=== PATIENT | female | born 1970 | race Caucasian/White ===

== ENCOUNTER 2019-02-03 02:39 | Inpatient (IN) | payer BC ==
[~2019-02-03] VITALS: Ht 154.9 cm; Wt 62.1 kg
[2019-02-03 02:46] VITALS: Ht 154.9 cm; Wt 62.1 kg
[2019-02-03 05:25] LABS: BASOPHIL % 0.7 % (0-2); CALCIUM 8.7 mg/dL (8.5-10.1); CARBON DIOXIDE 25.9 mmol/L (21-32); CHLORIDE SERUM 106 mmol/L (98-107); CREATININE SERUM 0.5 mg/dL (0.6-1.0); GFR1 > 60 mL/min; GLUCOSE SERUM 91 mg/dL (74-106); PLATELET COUNT 302 x10^3mcL (130-400); POTASSIUM SERUM 3.5 mmol/L (3.5-5.1); SODIUM SERUM 142 mmol/L (136-145)
[2019-02-03 05:28] LABS: RED CELL DISTRIBUTION WIDTH 14.8 % (11.5-14.5)
[2019-02-03 05:38] LABS: UA SPECIFIC GRAVITY >=1.030 (1.005-1.035); microscopic required? YES; urine erythrocyte NEGATIVE (NEGATIVE)
[2019-02-03 05:40] LABS: ALBUMIN 3.9 g/dL (3.4-5.0); ALKALINE PHOSPHATASE 85 U/L (46-116); ALT/SGPT 56 U/L (14-59); AST/SGOT 18 U/L (15-37); BILIRUBIN TOTAL 1.9 mg/dL (0.20-1.00); FREE T4 1.32 ng/dL (0.76-1.46); TOTAL PROTEIN, SERUM 7.7 g/dL (6.4-8.2)
[2019-02-03] MEDS ORDERED: NOR10 PO (07:53)
[2019-02-03] MEDS ORDERED: METOPROLOL (07:54)
[2019-02-03] MEDS ORDERED: MICARDIS HCT PO (08:07)
[2019-02-03 10:18] VITALS: BP 181/101
[2019-02-03] MEDS ORDERED: ASPIR 8181 MG PO (10:26)
[2019-02-03 11:29] LABS: PHOSPHOROUS 2.6 mg/dL (2.5-4.9)
[2019-02-03 11:45] VITALS: BP 171/93
[2019-02-03 13:53] LABS: AMPHETAMINE QUAL UR NONE DETECTED (See below)
[2019-02-03 13:54] VITALS: BP 165/77
[2019-02-03 16:53] LABS: C REACTIVE PROTEIN 0.5 mg/dL (<=0.9); URIC ACID 3.8 mg/dL (2.6-6.0)
[2019-02-03 17:06] VITALS: BP 147/94
[2019-02-03 17:07] LABS: CHOLESTEROL/HDL RATIO 2.5
[2019-02-03 20:31] VITALS: BP 129/74
[2019-02-04 05:25] VITALS: BP 134/86
[2019-02-04 07:46] LABS: BASOPHIL % 0.6 % (0-2); PLATELET COUNT 307 x10^3mcL (130-400); RED CELL DISTRIBUTION WIDTH 14.2 % (11.5-14.5)
[2019-02-04 08:05] LABS: CALCIUM 9.1 mg/dL (8.5-10.1); CARBON DIOXIDE 25.8 mmol/L (21-32); CHLORIDE SERUM 104 mmol/L (98-107); CREATININE SERUM 0.6 mg/dL (0.6-1.0); GFR1 > 60 mL/min; GLUCOSE SERUM 88 mg/dL (74-106); PHOSPHOROUS 3.8 mg/dL (2.5-4.9); POTASSIUM SERUM 3.6 mmol/L (3.5-5.1); SODIUM SERUM 141 mmol/L (136-145)
[2019-02-04 08:11] VITALS: BP 148/60
[2019-02-04 12:12] VITALS: BP 138/87
[2019-02-04] MEDS ORDERED: MED4 PO (13:59)
[2019-02-04] MEDS ORDERED: BENADRYL ALLERG25 M1 PO ×2 (14:00→14:11)
[2019-02-04] MEDS ORDERED: ZESTRIL20 MG PO (14:01)
[2019-02-04] MEDS ORDERED: LASIX20 MG PO (14:11)
== END 2019-02-04 14:30 | disposition home or self-care (01) | DRG 307 ==
LOC: ED 02:39 → DU 09:10
PROVIDERS: Emergency Medicine; ADMIT General Practice
DX: I34.0 Nonrheumatic mitral (valve) insufficiency (principal); J98.11 Atelectasis; I25.10 Atherosclerotic heart disease of native coronary artery without angina pectoris; I10 Essential (primary) hypertension; I27.20 Pulmonary hypertension, unspecified; R21 Rash and other nonspecific skin eruption; Z86.11 Personal history of tuberculosis; Z79.82 Long term (current) use of aspirin; Z68.27 Body mass index [BMI] 27.0-27.9, adult
CPT/HCPCS: 83880; 84439; 85378; 94150; J1644; J1885; J1940; J7620; Q0092

== ENCOUNTER 2019-07-17 18:16 | Emergency (ER) | payer BC ==
[~2019-07-17] VITALS: Ht 154.9 cm; Wt 68.5 kg
[~2019-07-17 18:16] MED LIST: ASPIR 8181 MG PO; BENADRYL ALLERG25 M1 PO; LASIX20 MG PO; MED4 PO; METOPROLOL; MICARDIS HCT PO; NOR10 PO; ZESTRIL20 MG PO
[2019-07-17 18:40] VITALS: Ht 154.9 cm; Wt 68.5 kg
[2019-07-17 22:37] VITALS: BP 153/92
== END 2019-07-17 22:37 | disposition home or self-care (01) ==
LOC: ED 18:16
DX: S13.4XXA Sprain of ligaments of cervical spine, initial encounter (principal); R51 Headache; I10 Essential (primary) hypertension; V43.52XA Car driver injured in collision with other type car in traffic accident, initial encounter; Y93.I9 Activity, other involving external motion; Y92.488 Other paved roadways as the place of occurrence of the external cause; Y99.8 Other external cause status

== ENCOUNTER 2019-09-10 08:30 | Emergency (ER) | payer BC ==
[~2019-09-10] VITALS: Ht 154.9 cm; Wt 67.1 kg
[2019-09-10 08:36] VITALS: Ht 154.9 cm; Wt 67.1 kg
[2019-09-10 10:58] LABS: BASOPHIL % 0.7 % (0-2); PLATELET COUNT 183 x10^3mcL (130-400); RED CELL DISTRIBUTION WIDTH 13.1 % (11.5-14.5)
[2019-09-10 11:00] LABS: CALCIUM 7.6 mg/dL (8.5-10.1); CARBON DIOXIDE 25.8 mmol/L (21-32); CHLORIDE SERUM 105 mmol/L (98-107); CREATININE SERUM 0.7 mg/dL (0.6-1.0); GFR1 > 60 mL/min; GLUCOSE SERUM 94 mg/dL (74-106); POTASSIUM SERUM 3.7 mmol/L (3.5-5.1); SODIUM SERUM 138 mmol/L (136-145)
[2019-09-10 11:52] VITALS: BP 143/91
== END 2019-09-10 12:31 | disposition home or self-care (01) ==
LOC: ED 08:30
PROVIDERS: Emergency Medicine
DX: J10.1 Influenza due to other identified influenza virus with other respiratory manifestations (principal); J18.9 Pneumonia, unspecified organism; I10 Essential (primary) hypertension
CPT/HCPCS: 36415; 87804; J1100; J7613

== ENCOUNTER 2019-09-15 10:05 | Emergency (ER) | payer BC ==
[~2019-09-15] VITALS: Ht 160 cm; Wt 68.0 kg
[2019-09-15 10:28] VITALS: Ht 160 cm; Wt 68.0 kg
[2019-09-15 12:08] VITALS: BP 134/92
== END 2019-09-15 13:08 | disposition home or self-care (01) ==
LOC: ED 10:05
DX: J18.9 Pneumonia, unspecified organism (principal); J98.01 Acute bronchospasm; I10 Essential (primary) hypertension
CPT/HCPCS: J7512; J7613

== ENCOUNTER 2019-10-12 18:57 | Inpatient (IN) | payer BC ==
[~2019-10-12] VITALS: Ht 154.9 cm; Wt 71.2 kg
[2019-10-12 19:24] VITALS: Ht 154.9 cm; Wt 71.2 kg
[2019-10-12 20:58] LABS: BASOPHIL % 0.3 % (0-2); PLATELET COUNT 315 x10^3mcL (130-400); RED CELL DISTRIBUTION WIDTH 14.5 % (11.5-14.5)
[2019-10-12 23:22] LABS: CALCIUM 8.6 mg/dL (8.5-10.1); CARBON DIOXIDE 28.3 mmol/L (21-32); CHLORIDE SERUM 104 mmol/L (98-107); CREATININE SERUM 0.7 mg/dL (0.6-1.0); GFR1 > 60 mL/min; GLUCOSE SERUM 89 mg/dL (74-106); POTASSIUM SERUM 3.4 mmol/L (3.5-5.1); SODIUM SERUM 140 mmol/L (136-145)
[2019-10-12 23:27] LABS: ALBUMIN 3.7 g/dL (3.4-5.0); ALKALINE PHOSPHATASE 126 U/L (46-116); ALT/SGPT 45 U/L (14-59); AST/SGOT 21 U/L (15-37); BILIRUBIN TOTAL 0.77 mg/dL (0.20-1.00); TOTAL PROTEIN, SERUM 7.5 g/dL (6.4-8.2)
[2019-10-13 04:09] LABS: CHOLESTEROL/HDL RATIO 2.8
[2019-10-13 04:37] LABS: FREE T4 1.18 ng/dL (0.76-1.46); FREE THYROXINE INDEX 2.7 ug/dL (1.4-4.5); T4(THYROXINE) 7.8 ug/dL (4.7-13.3)
[2019-10-13 07:08] LABS: microscopic required? NO
[2019-10-13 07:54] LABS: urine erythrocyte NEGATIVE (NEGATIVE)
[2019-10-13 08:39] LABS: AMPHETAMINE QUAL UR NONE DETECTED (See below)
[2019-10-13 08:59] LABS: BASOPHIL % 0.4 % (0-2); PLATELET COUNT 268 x10^3mcL (130-400); RED CELL DISTRIBUTION WIDTH 14.4 % (11.5-14.5)
[2019-10-13 09:22] LABS: CALCIUM 8.7 mg/dL (8.5-10.1); CHLORIDE SERUM 106 mmol/L (98-107); CREATININE SERUM 0.6 mg/dL (0.6-1.0); GFR1 > 60 mL/min; GLUCOSE SERUM 93 mg/dL (74-106); MAGNESIUM 1.9 mg/dL (1.8-2.4); PHOSPHOROUS 3.8 mg/dL (2.5-4.9); POTASSIUM SERUM 3.7 mmol/L (3.5-5.1); SODIUM SERUM 141 mmol/L (136-145)
[2019-10-13 10:12] VITALS: BP 151/84
[2019-10-13 13:39] VITALS: BP 138/85
[2019-10-13 17:01] VITALS: BP 132/86
[2019-10-13 20:40] VITALS: BP 120/76
[2019-10-14 06:11] VITALS: BP 121/72
[2019-10-14 06:32] LABS: BASOPHIL % 0.5 % (0-2); PLATELET COUNT 281 x10^3mcL (130-400)
[2019-10-14 06:37] LABS: CALCIUM 8.5 mg/dL (8.5-10.1); CHLORIDE SERUM 106 mmol/L (98-107); CREATININE SERUM 0.7 mg/dL (0.6-1.0); GFR1 > 60 mL/min; GLUCOSE SERUM 103 mg/dL (74-106); POTASSIUM SERUM 4.2 mmol/L (3.5-5.1); SODIUM SERUM 142 mmol/L (136-145)
[2019-10-14 07:07] LABS: RED CELL DISTRIBUTION WIDTH 14.8 % (11.5-14.5)
[2019-10-14 07:59] VITALS: BP 98/68
[2019-10-14 08:01] VITALS: BP 112/46; BP 98/68
[2019-10-14 09:36] VITALS: BP 120/82
[2019-10-14 13:16] VITALS: BP 129/84
[2019-10-14] MEDS ORDERED: LASIX20 MG PO (14:45)
[2019-10-14] MEDS ORDERED: LOP50 PO (14:45)
[2019-10-14] MEDS ORDERED: COZ50 PO (14:46)
[2019-10-14] MEDS ORDERED: ECO81 PO (14:46)
[2019-10-14] MEDS ORDERED: CLEOCIN HCL300 MG PO (14:49)
[2019-10-14 15:03] VITALS: BP 129/84
== END 2019-10-14 15:40 | disposition home or self-care (01) | DRG 602 ==
LOC: ED 18:57 → DU 10-13 03:26 → MU 10-13 03:26 → DU 10-13 07:20 → MU 10-13 16:27
PROVIDERS: Emergency Medicine; ADMIT Family Medicine
DX: L03.116 Cellulitis of left lower limb (principal); I50.33 Acute on chronic diastolic (congestive) heart failure; L03.115 Cellulitis of right lower limb; E87.6 Hypokalemia; I11.0 Hypertensive heart disease with heart failure; I25.10 Atherosclerotic heart disease of native coronary artery without angina pectoris; I34.0 Nonrheumatic mitral (valve) insufficiency; E78.5 Hyperlipidemia, unspecified; Z79.82 Long term (current) use of aspirin; Z68.25 Body mass index [BMI] 25.0-25.9, adult; Z86.11 Personal history of tuberculosis
CPT/HCPCS: 83880; 84439; 85378; G0378; J0696; J1940; J3490; J7030; Q0092

== ENCOUNTER 2020-07-15 23:41 | Inpatient (IN) | payer BC ==
[~2020-07-15] VITALS: Ht 154.9 cm; Wt 60.6 kg
[~2020-07-15 23:41] MED LIST changes: +CLEOCIN HCL300 MG PO; +COZ50 PO; +ECO81 PO; +LOP50 PO
[2020-07-15 23:51] VITALS: Ht 154.9 cm; Wt 60.6 kg
[2020-07-16] VITALS (7 sets, daily range): BP systolic 122–186; BP diastolic 66–104
[2020-07-16 01:10] LABS: BASOPHIL % 0.8 % (0-2); PLATELET COUNT 246 x10^3mcL (130-400); RED CELL DISTRIBUTION WIDTH 12.8 % (11.5-14.5)
[2020-07-16 01:22] LABS: CALCIUM 8.7 mg/dL (8.5-10.1); CARBON DIOXIDE 30.9 mmol/L (21-32); CHLORIDE SERUM 101 mmol/L (98-107); CREATININE SERUM 0.8 mg/dL (0.6-1.0); GFR1 > 60 mL/min; POTASSIUM SERUM 3.7 mmol/L (3.5-5.1); SODIUM SERUM 137 mmol/L (136-145)
[2020-07-16 01:34] LABS: ALBUMIN 3.9 g/dL (3.4-5.0); ALKALINE PHOSPHATASE 109 U/L (46-116); ALT/SGPT 23 U/L (14-59); AST/SGOT 22 U/L (15-37); BILIRUBIN TOTAL 0.62 mg/dL (0.20-1.00); GLUCOSE SERUM 96 mg/dL (74-106); TOTAL PROTEIN, SERUM 7.9 g/dL (6.4-8.2)
[2020-07-16] MEDS ORDERED: NITROGLYCERIN0.3 MG SL (01:58)
[2020-07-16] MEDS ORDERED: NORVASC10 MG PO (01:59)
[2020-07-16 02:32] LABS: MAGNESIUM 1.8 mg/dL (1.8-2.4); PHOSPHOROUS 3.1 mg/dL (2.5-4.9)
[2020-07-16 02:43] LABS: T3 TOTAL 1.26 ng/mL
[2020-07-16 02:56] LABS: FREE T4 0.89 ng/dL (0.76-1.46); FREE THYROXINE INDEX 2.1 ug/dL (1.4-4.5); T4(THYROXINE) 6.7 ug/dL (4.7-13.3)
[2020-07-16 04:18] LABS: CHOLESTEROL/HDL RATIO 3.7
[2020-07-16] MEDS ORDERED: COREG6.25 M1 PO (14:35)
[2020-07-16] MEDS ORDERED: ZESTRIL20 MG PO (14:36)
[2020-07-16] MEDS ORDERED: ISO10 PO (14:38)
[2020-07-16] MEDS ORDERED: RANEXA500 M2 PO (14:40)
[2020-07-16] MEDS ORDERED: LIPITOR40 MG PO (14:47)
== END 2020-07-16 17:25 | disposition home or self-care (01) | DRG 305 ==
LOC: ED 23:41 → DU 07-16 01:49
PROVIDERS: Emergency Medicine; ADMIT Internal Medicine; ATTEND Internal Medicine
DX: I16.0 Hypertensive urgency (principal); I25.10 Atherosclerotic heart disease of native coronary artery without angina pectoris; E78.5 Hyperlipidemia, unspecified; Z20.828 Contact with and (suspected) exposure to other viral communicable diseases; I34.0 Nonrheumatic mitral (valve) insufficiency; I25.2 Old myocardial infarction; Z79.899 Other long term (current) drug therapy; Z79.82 Long term (current) use of aspirin; Z79.01 Long term (current) use of anticoagulants; Z82.49 Family history of ischemic heart disease and other diseases of the circulatory system
CPT/HCPCS: 83880; 84439; G0378; J3490; Q0092

== ENCOUNTER 2020-08-11 19:28 | Inpatient (IN) | payer BC ==
[~2020-08-11] VITALS: Ht 154.9 cm; Wt 64.1 kg
[~2020-08-11 19:28] MED LIST changes: +COREG6.25 M1 PO; +ISO10 PO; +LIPITOR40 MG PO; +NITROGLYCERIN0.3 MG SL; +NORVASC10 MG PO; +RANEXA500 M2 PO
[2020-08-11 21:11] LABS: microscopic required? NO
[2020-08-11 21:12] LABS: BASOPHIL % 1.1 % (0-2); PLATELET COUNT 271 x10^3mcL (130-400); RED CELL DISTRIBUTION WIDTH 14.1 % (11.5-14.5)
[2020-08-11 21:18] LABS: CALCIUM 8.9 mg/dL (8.5-10.1); CHLORIDE SERUM 102 mmol/L (98-107); CREATININE SERUM 0.8 mg/dL (0.6-1.0); GFR1 > 60 mL/min; GLUCOSE SERUM 114 mg/dL (74-106); POTASSIUM SERUM 3.5 mmol/L (3.5-5.1); SODIUM SERUM 136 mmol/L (136-145)
[2020-08-11 21:23] LABS: ALBUMIN 3.5 g/dL (3.4-5.0); ALKALINE PHOSPHATASE 128 U/L (46-116); ALT/SGPT 41 U/L (14-59); AST/SGOT 12 U/L (15-37); BILIRUBIN TOTAL 0.5 mg/dL (0.20-1.00); TOTAL PROTEIN, SERUM 6.7 g/dL (6.4-8.2)
[2020-08-11 21:40] LABS: urine erythrocyte NEGATIVE (NEGATIVE)
[2020-08-11 21:45] LABS: T3 TOTAL 1.21 ng/mL
[2020-08-11 21:47] LABS: FREE T4 1.13 ng/dL (0.76-1.46); FREE THYROXINE INDEX 2.8 ug/dL (1.4-4.5); T4(THYROXINE) 7.3 ug/dL (4.7-13.3)
[2020-08-11 21:59] LABS: AMPHETAMINE QUAL UR NONE DETECTED (See below)
[2020-08-12] VITALS (9 sets, daily range): BP systolic 122–190; BP diastolic 75–115; Ht 154.9 cm; Wt 64.1 kg
[2020-08-12 02:13] LABS: CHOLESTEROL/HDL RATIO 3.1; MAGNESIUM 1.9 mg/dL (1.8-2.4); PHOSPHOROUS 3.7 mg/dL (2.5-4.9)
[2020-08-12 09:26] LABS: BASOPHIL % 1.3 % (0-2); PLATELET COUNT 279 x10^3mcL (130-400); RED CELL DISTRIBUTION WIDTH 13.1 % (11.5-14.5)
[2020-08-12 10:46] LABS: CALCIUM 8.6 mg/dL (8.5-10.1); CARBON DIOXIDE 26.3 mmol/L (21-32); CHLORIDE SERUM 102 mmol/L (98-107); CREATININE SERUM 0.7 mg/dL (0.6-1.0); GFR1 > 60 mL/min; GLUCOSE SERUM 103 mg/dL (74-106); POTASSIUM SERUM 3.6 mmol/L (3.5-5.1); SODIUM SERUM 136 mmol/L (136-145)
[2020-08-13] VITALS (7 sets, daily range): BP systolic 82–123; BP diastolic 42–78
[2020-08-13 08:27] LABS: CALCIUM 8.4 mg/dL (8.5-10.1); CHLORIDE SERUM 103 mmol/L (98-107); CREATININE SERUM 0.8 mg/dL (0.6-1.0); GFR1 > 60 mL/min; GLUCOSE SERUM 121 mg/dL (74-106); POTASSIUM SERUM 4.3 mmol/L (3.5-5.1); SODIUM SERUM 135 mmol/L (136-145)
[2020-08-13 08:39] LABS: BASOPHIL % 0.5 % (0-2); PLATELET COUNT 301 x10^3mcL (130-400); RED CELL DISTRIBUTION WIDTH 14.1 % (11.5-14.5)
[2020-08-13] MEDS ORDERED: ADA90 PO (12:59)
[2020-08-13] MEDS ORDERED: ISO10 PO (13:13)
== END 2020-08-13 15:53 | disposition home or self-care (01) | DRG 313 ==
LOC: ED 19:28 → DU 22:30
PROVIDERS: Specialist; ADMIT Internal Medicine; ATTEND Internal Medicine
DX: R07.89 Other chest pain (principal); I16.0 Hypertensive urgency; F41.9 Anxiety disorder, unspecified; I25.10 Atherosclerotic heart disease of native coronary artery without angina pectoris; I34.0 Nonrheumatic mitral (valve) insufficiency; E78.5 Hyperlipidemia, unspecified; I25.2 Old myocardial infarction; Z82.49 Family history of ischemic heart disease and other diseases of the circulatory system; Z86.11 Personal history of tuberculosis
CPT/HCPCS: 83880; 84439; G0378; J2405; J3490; J7030; Q0162